=== PATIENT | male | born 1980 | race American Indian/Alaskan Native ===

== ENCOUNTER 2016-05-27 07:44 | Emergency (ER) | payer OTHER ==
[2016-05-27 07:56] VITALS: BP 117/72
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
[2016-05-27] MEDS ORDERED: MOTRIN PO ONE (08:17)
[2016-05-27] MEDS ORDERED: TRIPLE ANTIBIOTIC TP ONE (08:17)
[2016-05-27] MEDS ORDERED: MARCAINE 0.5% INFILTRATI ONE (08:19)
[2016-05-27] MEDS ORDERED: NACL 0.9% IR ONE (08:20)
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
[2016-05-27] MEDS ORDERED: BOOSTRIX IM ONE (10:39)
== END 2016-05-27 11:19 | disposition home or self-care (01) ==
LOC: ED 07:44
DX: S81.811A Laceration without foreign body, right lower leg, initial encounter (principal); S50.312A Abrasion of left elbow, initial encounter; S50.311A Abrasion of right elbow, initial encounter; Z87.891 Personal history of nicotine dependence; V29.9XXA Motorcycle rider (driver) (passenger) injured in unspecified traffic accident, initial encounter; Y93.9 Activity, unspecified; Y92.9 Unspecified place or not applicable; Y99.9 Unspecified external cause status
CPT/HCPCS: 90471; 90715; A6250